=== PATIENT | male | born 1975 | race Hispanic/Latino ===

== ENCOUNTER 2021-05-13 13:28 | Emergency (ER) | payer SELFPAY ==
[2021-05-13] MEDS ORDERED: Dexamethasone 20 MG/5 ML VIAL ONE ×2 (14:25→14:26)
[2021-05-13] MEDS ORDERED: Acetaminophen 500 MG TAB ONE (14:25)
[2021-05-13 15:24] LABS: SARS-CoV-2 NAA Rapid Test Not Detected (NotDetected)
== END 2021-05-13 14:41 | disposition home or self-care (01) ==
LOC: NAV ERS 13:28
DX: J02.9 Acute pharyngitis, unspecified (principal); Z20.822 Contact with and (suspected) exposure to COVID-19; E11.9 Type 2 diabetes mellitus without complications; F17.210 Nicotine dependence, cigarettes, uncomplicated
CPT/HCPCS: 0240U; 87081; 87430; 99283; J1100

== ENCOUNTER 2021-08-14 17:50 | Emergency (ER) | payer SELFPAY ==
[2021-08-14 18:13] LABS: Bilirubin Negative (Negative); Blood, Urine Negative (Negative); Clarity Clear (Clear); Glucose, Urine (Dipstick) >=1000 mg/dL (Negative); Ketone, Urine Negative (Negative); Leukocyte Negative (Negative); Nitrite Negative (Negative); Protein, Urine (Dipstick) Negative (Neg-Trace); Specific Gravity, Urine 1.015 (1.005-1.030); Urobilinogen 0.2 mg/dL (Less than 2); pH, Urine 5.5 (5.0-9.0)
[2021-08-14 18:20] LABS: #Basophils 0.1 thou/uL (0.0-0.2); #Eosinphils 0.1 thou/uL (0.0-0.7); #Lymphocytes 2.7 thou/uL (1.20-3.40); #Monocytes 0.6 thou/uL (0.11-0.59); %Eosinophils 1.8 % (0.0-10.0); %Lymphocytes 36.3 % (21.0-51.0); %Monocytes 7.4 % (0.0-10.0); %Neutrophils 53.5 % (42.0-75.0); Mean Corpuscular HGB CONC 32.3 g/dL (32.0-36.0); Mean Corpuscular Hemoglobin 29.2 pg (27.0-31.0); Mean Corpuscular Volume 90.2 fL (78.0-98.0); Mean Platelet Volume 8.5 fL (7.4-10.4); Platelet Count 247 thou/uL (130-400); RBC Distribution Width 11.1 % (11.5-14.5); Red Blood Cell (RBC) Count 5.84 mill/uL (4.70-6.10); White Blood Cell (WBC) Count 7.4 thou/uL (4.8-10.8)
[2021-08-14] MEDS ORDERED: Sodium Chloride 0.9% 2,000 ML ONE (18:20)
[2021-08-14 18:37] LABS: ALT (SGPT) 11 U/L (8-55); AST (SGOT) 10 U/L (5-34); Albumin 4.3 g/dL (3.5-5.0); Alkaline Phosphatase 61 U/L (40-110); Anion Gap 21 mmol/L (10-20); BUN (Urea Nitrogen) 16 mg/dL (8.9-20.6); Bilirubin, Total 0.4 mg/dL (0.2-1.2); Calc. Creatinine Clearance 0 mL/min (70-130); Carbon Dioxide 17 mmol/L (22-29); Chloride 99 mmol/L (98-107); Globulin 3.6 g/dL (2.4-3.5); Glucose 469 mg/dL (70-105); Lipase 33 U/L (8-78); Potassium 4.6 mmol/L (3.5-5.1); Protein, Total 7.9 g/dL (6.0-8.3); Sodium 132 mmol/L (136-145)
[2021-08-14] MEDS ORDERED: Sodium Chloride 0.9% 100 ML ONE (18:48)
[2021-08-14] MEDS ORDERED: Cefepime 2 GM VIAL ONE (18:48)
[2021-08-14] MEDS ORDERED: Vancomycin HCl 500 MG VIAL ONE (19:51)
[2021-08-14] MEDS ORDERED: Sodium Chloride 0.9% 500 ML ONE (19:51)
[2021-08-14 21:01] LABS: SARS-CoV-2 NAA Rapid Test Not Detected (NotDetected)
== END 2021-08-14 20:47 | disposition short-term general hospital (02) ==
LOC: NAV ERS 17:50
DX: E86.0 Dehydration (principal); E11.65 Type 2 diabetes mellitus with hyperglycemia; R07.9 Chest pain, unspecified; N50.812 Left testicular pain; N50.811 Right testicular pain; R10.13 Epigastric pain; R10.30 Lower abdominal pain, unspecified; R00.0 Tachycardia, unspecified; R74.02 Elevation of levels of lactic acid dehydrogenase [LDH]; I10 Essential (primary) hypertension; E78.5 Hyperlipidemia, unspecified; Z20.822 Contact with and (suspected) exposure to COVID-19; Z87.891 Personal history of nicotine dependence; Z79.84 Long term (current) use of oral hypoglycemic drugs; Z79.899 Other long term (current) drug therapy
CPT/HCPCS: 71045; 74176; 80053; 81003; 82150; 83605; 83690; 83880; 84484; 85025; 85379; 87040; 87086; 93005; 96365; 96367; J0692; J3370; J3490; J7030; J7050; U0002

== ENCOUNTER 2021-12-15 14:57 | Emergency (ER) | payer SELFPAY ==
[2021-12-15] MEDS ORDERED: Sodium Chloride 0.9% 1,000 ML ONE ×2 (15:31→19:03)
[2021-12-15] MEDS ORDERED: Morphine 4 MG/ML VIAL ONE (15:31)
[2021-12-15] MEDS ORDERED: Ondansetron PF 4 MG/2 ML Vial ONE (15:31)
[2021-12-15 15:32] LABS: #Basophils 0.1 thou/uL (0.0-0.2); #Eosinphils 0.2 thou/uL (0.0-0.7); #Lymphocytes 2.4 thou/uL (1.20-3.40); #Monocytes 0.7 thou/uL (0.11-0.59); #Neutrophils 4.9 thou/uL (1.40-6.50); %Basophils 1.1 % (0.0-1.0); %Eosinophils 2.8 % (0.0-10.0); %Lymphocytes 29.1 % (21.0-51.0); %Monocytes 8.3 % (0.0-10.0); %Neutrophils 58.7 % (42.0-75.0); Hemoglobin 15.7 g/dL (14.0-18.0); Mean Corpuscular HGB CONC 31.9 g/dL (32.0-36.0); Mean Corpuscular Hemoglobin 28.8 pg (27.0-31.0); Mean Corpuscular Volume 90.3 fL (78.0-98.0); Platelet Count 220 thou/uL (130-400); RBC Distribution Width 11.8 % (11.5-14.5); Red Blood Cell (RBC) Count 5.46 mill/uL (4.70-6.10); White Blood Cell (WBC) Count 8.4 thou/uL (4.8-10.8)
[2021-12-15 15:39] LABS: Bilirubin Negative (Negative); Blood, Urine Negative (Negative); Clarity Clear (Clear); Glucose, Urine (Dipstick) >=1000 mg/dL (Negative); Ketone, Urine Negative (Negative); Leukocyte Negative (Negative); Nitrite Negative (Negative); Protein, Urine (Dipstick) Negative (Neg-Trace); Urobilinogen 0.2 mg/dL (Less than 2); pH, Urine 5.5 (5.0-9.0)
[2021-12-15 15:47] LABS: ALT (SGPT) 12 U/L (8-55); AST (SGOT) 7 U/L (5-34); Albumin 4.1 g/dL (3.5-5.0); Alkaline Phosphatase 69 U/L (40-110); Anion Gap 18 mmol/L (10-20); BUN (Urea Nitrogen) 10 mg/dL (8.9-20.6); Bilirubin, Total 0.4 mg/dL (0.2-1.2); CK (CPK) 41 U/L (30-200); Calc. Creatinine Clearance 0 mL/min (70-130); Calcium 9.1 mg/dL (7.8-10.44); Carbon Dioxide 20 mmol/L (22-29); Chloride 97 mmol/L (98-107); Globulin 2.6 g/dL (2.4-3.5); Lipase 32 U/L (8-78); Magnesium 2.2 mg/dL (1.6-2.6); Phosphorus 3.6 mg/dL (2.3-4.7); Potassium 4.8 mmol/L (3.5-5.1); Protein, Total 6.7 g/dL (6.0-8.3); Sodium 130 mmol/L (136-145)
[2021-12-15 15:50] LABS: Glucose 729 mg/dL (70-105)
[2021-12-15 15:59] LABS: Amphetamine Not Detected (NotDetected); Barbiturates Screen Not Detected (NotDetected); Benzodiazepine Screen Not Detected (NotDetected); Cocaine Metabolite Screen Not Detected (NotDetected); Methadone Not Detected (NotDetected); Methamphetamine Not Detected (NotDetected); Opiate Screen Not Detected (NotDetected); Phencyclidine (PCP) Not Detected (NotDetected); THC/Cannabinoid Screen Not Detected (NotDetected); Tricyclic Screen Not Detected (NotDetected)
[2021-12-15 16:00] LABS: Medtox Control Line Valid? VALID (VALID); Oxycodone Screen Not Detected (NotDetected)
[2021-12-15] MEDS ORDERED: Insulin Regular 300 UNITS/3 ML VIAL ONE (16:03)
[2021-12-15] MEDS ORDERED: INSULIN REGULAR IN 0.9 % NACL 100 UNIT/100 ML BAG ONE (16:05)
[2021-12-15 16:18] LABS: Base Excess-Venous -1.9 mmol/L (-2.0 to 3.0); Bicarbonate (HCO3v) 22.2 mmol/L (22.0-28.0); CO2 Tension (PvCO2) 35.1 mmHg (42.0-51.0); Calcium, Ionized 1.12 mmol/L (1.15-1.33); Chloride 100 mmol/L (98-107); Hemoglobin - Calc 13.7 g/dL (14.0-18.0); Potassium 4.3 mmol/L (3.5-5.1); Sodium 135 mmol/L (138-145); T. Carbon Dioxide 23.3 mmol/L (22.0-28.0); vO2 Saturation-calc 99.6 % (60.0-85.0)
[2021-12-15] MEDS ORDERED: Sodium Chloride 0.9% 2,000 ML ONE (16:50)
[2021-12-15 18:44] LABS: Lactic Acid 1.9 mmol/L (0.5-2.2)
[2021-12-15] MEDS ORDERED: Ketorolac Tromethamine 30 MG/ML VIAL ONE (19:03)
[2021-12-16 17:56] LABS: SARS-CoV-2 PCR by NAA Not Detected (NotDetected)
== END 2021-12-15 20:52 | disposition home or self-care (01) ==
LOC: NAV ERS 14:57
DX: E11.9 Type 2 diabetes mellitus without complications (principal); J06.9 Acute upper respiratory infection, unspecified; R07.89 Other chest pain; E86.0 Dehydration; R00.0 Tachycardia, unspecified; I10 Essential (primary) hypertension; E78.5 Hyperlipidemia, unspecified; Z20.822 Contact with and (suspected) exposure to COVID-19; Z87.891 Personal history of nicotine dependence; Z79.84 Long term (current) use of oral hypoglycemic drugs
CPT/HCPCS: 36416; 71045; 80053; 80306; 81003; 82010; 82330; 82550; 82803; 83605; 83690; 83735; 84100; 84484; 85025; 85379; 93005; 96365; 96375; J1815; J1885; J2270; J2405; J7050; U0003; U0005

== ENCOUNTER 2023-01-10 10:16 | Emergency (ER) | payer SELFPAY | END 2023-01-10 11:51 | disposition home or self-care (01) | LOC: NAV ERS 10:16 | DX: S20.212A Contusion of left front wall of thorax, initial encounter (principal); E86.0 Dehydration; E11.9 Type 2 diabetes mellitus without complications; E78.00 Pure hypercholesterolemia, unspecified; I10 Essential (primary) hypertension; W18.2XXA Fall in (into) shower or empty bathtub, initial encounter; Z87.891 Personal history of nicotine dependence; Z79.4 Long term (current) use of insulin | CPT/HCPCS: 71046; 71110 ==

== ENCOUNTER 2024-07-05 12:39 | Emergency (ER) | payer SELFPAY ==
[2024-07-05 13:29] LABS: #Basophils 0.1 thou/uL (0.0-0.2); #Eosinphils 0.2 thou/uL (0.0-0.7); #Lymphocytes 2.2 thou/uL (1.20-3.40); #Monocytes 0.6 thou/uL (0.11-0.59); #Neutrophils 4.4 thou/uL (1.40-6.50); %Basophils 1.1 % (0.0-1.0); %Eosinophils 2.7 % (0.0-10.0); %Monocytes 7.9 % (0.0-10.0); %Neutrophils 58.2 % (42.0-75.0); Hematocrit 46.9 % (42.0-52.0); Hemoglobin 15.4 g/dL (14.0-18.0); Mean Corpuscular HGB CONC 32.9 g/dL (32.0-36.0); Mean Corpuscular Hemoglobin 28.8 pg (27.0-31.0); Mean Corpuscular Volume 87.5 fl (78.0-98.0); Mean Platelet Volume 8.5 fL (7.4-10.4); Platelet Count 190 10x3/uL (130-400); RBC Distribution Width 10.9 % (11.5-14.5); Red Blood Cell (RBC) Count 5.36 mill/uL (4.70-6.10); White Blood Cell (WBC) Count 7.5 10x3/uL (4.8-10.8)
[2024-07-05] MEDS ORDERED: Sodium Chloride 0.9% 1,000 ML ONE (13:31)
[2024-07-05 13:33] LABS: Base Excess-Venous -2.5 mmol/L (-2.0 to 3.0); Bicarbonate (HCO3v) 21.3 mmol/L (22.0-28.0); CO2 Tension (PvCO2) 33.8 mmHg (42.0-51.0); Calcium, Ionized 1.24 mmol/L (1.15-1.33); Chloride 102 mmol/L (98-107); Hemoglobin - Calc 16.5 g/dL (14.0-18.0); Potassium 4.2 mmol/L (3.5-5.1); Sodium 137 mmol/L (138-145); T. Carbon Dioxide 22.4 mmol/L (22.0-28.0); vO2 Saturation-calc 82.4 % (60.0-85.0)
[2024-07-05 13:38] LABS: ALT (SGPT) 33 U/L (8-55); AST (SGOT) 20 U/L (5-34); Albumin 4.1 g/dL (3.5-5.0); Alkaline Phosphatase 74 U/L (40-110); Anion Gap 18 mmol/L (10-20); BUN (Urea Nitrogen) 14 mg/dL (8.9-20.6); Bilirubin, Total 0.5 mg/dL (0.2-1.2); Calc. Creatinine Clearance 0 mL/min (70-130); Calcium 9.8 mg/dL (7.8-10.44); Carbon Dioxide 19 mmol/L (22-29); Chloride 102 mmol/L (98-107); Estimated GFR 109; Globulin 3.5 g/dL (2.4-3.5); Glucose 309 mg/dL (70-105); Potassium 4.2 mmol/L (3.5-5.1); Protein, Total 7.6 g/dL (6.0-8.3); Sodium 135 mmol/L (136-145)
[2024-07-05 13:53] LABS: Troponin I Less than 0.010 ng/mL (< 0.028)
[2024-07-05] MEDS ORDERED: metFORMIN 500 MG TAB ONE (14:39)
[2024-07-06 16:52] LABS: SARS-CoV-2 N1 Negative; SARS-CoV-2 N2 Negative; SARS-CoV-2 RNAse P1 Positive; SARS-CoV-2 RNAse P2 Positive
== END 2024-07-05 14:54 | disposition home or self-care (01) ==
LOC: NAV ERS 12:39
DX: R07.81 Pleurodynia (principal); E86.0 Dehydration; E11.65 Type 2 diabetes mellitus with hyperglycemia; R06.4 Hyperventilation; F17.210 Nicotine dependence, cigarettes, uncomplicated
CPT/HCPCS: 36416; 71045; 80053; 82010; 82330; 82803; 84484; 85025; 85379; 87635; 87804; 93005; 96360; J7030